=== PATIENT | female | born 1955 | race Caucasian/White ===

== ENCOUNTER → 2016-10-25 | Outpatient (CLI) | payer OTHER ==
--- NOTE | 2016-10-26 09:52 | MAM ---
EXAM DESCRIPTION: MAMMO BREAST SCREENING BILATERAL CAD, images were reviewed with CAD technology, R2 computer-aided detection. CLINICAL HISTORY: [facility]. COMPARISON: 2012. FINDINGS: Routine views are obtained. Scattered glandular pattern has slight nodularity with stable distribution. No dominant mass, architectural distortion or clustered microcalcification.. IMPRESSION: Benign exam. BIRAD CATEGORY: 2 BENIGN RECOMMENDATIONS: FOLLOW-UP: Routine screening mammogram in one year. According to the [employer], yearly mammograms are recommended starting at age 40 and continuing as long as a woman is in good health. Any breast change noted on a breast self-exam should be reported promptly to the patient's healthcare provider. Breast MRI is recommended for women with an approximately 20-25% or greater lifetime risk of breast cancer, including women with a strong family history of breast or ovarian cancer and women who have been treated for Hodgkin's disease. Electronically signed by: Ondina Dowling 10/26/2016 09:51
== END ==
LOC: MAMMO 15:51
PROVIDERS: ATTEND Family Medicine
DX: Z12.31 Encounter for screening mammogram for malignant neoplasm of breast (principal)
CPT/HCPCS: 77052; G0202

== ENCOUNTER → 2018-11-07 | Outpatient (CLI) | payer MEDICARE, OTHER | LOC: GMAL 11:36 | PROVIDERS: ATTEND Family Medicine | DX: D51.3 Other dietary vitamin B12 deficiency anemia (principal); R53.83 Other fatigue; E55.9 Vitamin D deficiency, unspecified ==

== ENCOUNTER 2019-04-15 16:38 | Inpatient (IN) | payer MEDICARE, OTHER ==
--- NOTE | 2019-04-15 16:39 | HP ---
SUPERVISING PHYSICIAN: Ric Minaya M.D. CHIEF COMPLAINT: Right lower extremity swelling. HISTORY OF PRESENT ILLNESS: This is a 63 year-old female who went to her primary care physician's office today for right lower extremity swelling. She does have an extensive history of that lower extremity in the fact that in 2018 she had a tibial plateau fracture and ended up developing compartment syndrome and needed a fasciotomy. Nonetheless, about a week ago last Sunday she went for a pedicure and they nicked her toe. Since that time she has had increased swelling, redness and discomfort to the lower extremity. She also complains of fever and chills. When she went to the doctor's office over there Dr. Mac contacted me for direct admission due to the fact she did have cellulitis in addition to the fact that since she has had an extensive history to that lower extremity already, he felt like she would need IV antibiotics. At time of examination the patient is alert and oriented without distress, however, does complain of discomfort to mainly the right second toe as well as discomfort to palpation of the right lower extremity. Homans' sign is negative so far. She does not complain of any other symptoms at this time. PAST MEDICAL HISTORY: 1. Hypertension. 2. Hyperlipidemia. 3. Fatty liver disease. 4. Atrial fibrillation. She is on Pradaxa. 5. SVT in the past and had ablations that were successful. 6. Right distal fibula fracture. 7. Ankle fusion back in 2005. 8. In 2018, she had a tibial plateau fracture that was complicated by compartment syndrome requiring a fasciotomy. PAST SURGICAL HISTORY: 1. sections times 2, one in 1982 and one in 1986. 2. Neurovascular membrane eye surgery in 1984. 3. Lap band surgery in 2006. 4. Right ankle surgery in 2005. 5. Open reduction and internal fixation of tibial plateau fracture and 4 fasciotomies back in 2018. 6. Colonoscopies as well. CURRENT MEDICATIONS: 1. Simvastatin 40 mg 1/2 tab p.o. every h.s. 2. Tarka 4/240 one tab by mouth daily. 3. Triamterene/HCTZ 37.5/25 one tab daily. 4. Venlafaxine 37.5 mg 1 tab p.o. b.i.d. 5. Pradaxa 150 mg 1 tab b.i.d. 6. Metoprolol 50 mg 1 tab daily. 7. Co Enzyme Q10 daily. 8. Vitamin B12 1,000 mcg 1 tab daily. 9. Vitamin D3 1,000 iu 1 tab p.o. b.i.d. ALLERGIES: PAXIL, PENICILLIN, WELLBUTRIN. FAMILY HISTORY: Father who of lung cancer. Mother who of heart disease but did have breast cancer and hypertension. A sister who is living and has osteoporosis. SOCIAL HISTORY: She drinks wine on occasion. No smoking. No illicit drugs. REVIEW OF SYSTEMS: CONSTITUTIONAL: Positive for fever and chills. No recent weight loss or weight gain. HEENT: No headaches, vision changes, ear pain, nasal congestion or throat pain. CARDIOVASCULAR: No chest pain, palpitations, peripheral edema. RESPIRATORY: No cough, hemoptysis or pleuritic chest pain. GASTROINTESTINAL: No nausea, vomiting, diarrhea, constipation or abdominal pain. GENITOURINARY: No dysuria, frequency or flank pain. MUSCULOSKELETAL: No joint pain, joint swelling or muscle cramps. INTEGUMENT: She does have the lower extremity cellulitis and swelling of her right lower extremity. ENDOCRINE: No polydipsia, polyuria or polyphagia. No heat or cold intolerance. NEUROLOGIC: No seizures, paresthesias or syncope. PHYSICAL EXAMINATION: VITAL SIGNS: Blood pressure 121/74, heart rate 80, respiratory rate 18, temperature 101.1, oxygen saturation 97%. GENERAL: Ms. Lowery is a 63 year-old female who is in no active distress at this time. CHEST: Lungs are clear to auscultation bilaterally. CARDIOVASCULAR: Regular rate and rhythm. Normal S1 and S2. ABDOMEN: Soft. Positive bowel sounds. GENITOURINARY: Exam is deferred. EXTREMITIES: Lower extremities with the left lower extremity without any abnormalities. Right lower extremity does have some edema on the lateral side. She does have erythema and warmth to touch. Second toe of the right foot has a small abrasion where she did get nicked by the filler spreader. She has scarring on the lower extremity from the previous fasciotomies. NEUROLOGIC: The patient is alert and oriented. ASSESSMENT: 1. Right lower extremity cellulitis. 2. History of fasciotomies due to compartment syndrome on the right lower extremity. 3. Hypertension. 4. Hyperlipidemia. 5. History of atrial fibrillation for which she was recently placed on Pradaxa. PLAN: At this time will admit the patient. Do a CBC, CMP, CRP, ESR as well as blood cultures. I will initiate on Clindamycin for antibiotic therapy. Once her medications are verified in the computer, I will place her back on her Pradaxa for DVT prophylaxis. I have ordered a PPI for GI ulcer prophylaxis. I have ordered a Doppler sonogram of the right lower extremity as well to rule out a deep venous thrombosis. #[id number] [facility]TDD
[2019-04-15] MEDS ORDERED: SODIUM CHLORIDE 0.9% (FLUSH) 10 ML SYG IV PRN (17:02)
[2019-04-15] MEDS ORDERED: IV SET AND CAP CHANGE INJ INJ SCH (17:30)
[2019-04-15] MEDS ORDERED: HYDROcodone 5MG/APAP 325MG 1 EA TAB ONE (18:22)
[2019-04-15] MEDS: HYDROcodone 5MG/APAP 325MG 1 EA TAB PO PRN (18:25)
[2019-04-15] MEDS ORDERED: CLINDAMYCIN IV 600MG 50 ML IVPB ONE (18:43)
[2019-04-15] MEDS: CLINDAMYCIN IV 600MG 600 MG in PREMIX BAG 1 BAG IVPB SCH (18:45)
[2019-04-15] MEDS ORDERED: DABIGATRAN ETEXILATE 75 MG CAP PO ONE (21:24)
[2019-04-15] MEDS ORDERED: SIMVASTATIN 20 MG TAB ONE (21:25)
[2019-04-15] MEDS: PRADAXA 150 MG PO SCH (21:27)
[2019-04-15] MEDS: NON-FORMULARY MEDICATION 1 EA MIS (Simvastatin [Simvastatin] 40 MG) PO SCH (21:27)
[2019-04-15] MEDS ORDERED: SIMVASTATIN 20 MG TAB PO ONE (21:53)
[2019-04-15] MEDS ORDERED: VANCOMYCIN PER PHARMACY INJ SCH (22:30)
[2019-04-16] MEDS ORDERED: CLINDAMYCIN IV 600MG 50 ML IVPB ONE ×6 (00:26→19:16)
[2019-04-16] MEDS ORDERED: HYDROcodone 5MG/APAP 325MG 1 EA TAB ONE ×2 (00:26→06:44)
[2019-04-16] MEDS: HYDROcodone 5MG/APAP 325MG 1 EA TAB PO PRN ×2 (00:28→06:46)
[2019-04-16] MEDS: CLINDAMYCIN IV 600MG 600 MG in PREMIX BAG 1 BAG IVPB SCH ×4 (00:28→17:54)
[2019-04-16] MEDS: OMEPRAZOLE CAP 20 MG CAP PO SCH (06:16)
[2019-04-16] MEDS ORDERED: SODIUM CHL 0.9% 250ML (AVIVA) 250 ML IVPB ONE ×2 (08:58→19:14)
[2019-04-16] MEDS ORDERED: VANCOMYCIN HCL INJ 500 MG VIAL ONE ×2 (08:58→19:14)
[2019-04-16] MEDS ORDERED: DABIGATRAN ETEXILATE 75 MG CAP PO ONE (08:58)
[2019-04-16] MEDS ORDERED: VANCOMYCIN HCL INJ 1,000 MG VIAL IVPB ONE ×2 (08:59→19:15)
[2019-04-16] MEDS ORDERED: HYDROCHLOROTHIAZIDE PO SCH (09:00)
[2019-04-16] MEDS ORDERED: TARKA PO SCH (09:00)
[2019-04-16] MEDS ORDERED: TRIAMTERENE PO SCH (09:00)
[2019-04-16] MEDS: VANCOMYCIN HCL INJ 1,000 MG, VANCOMYCIN HCL INJ 500 MG in SODIUM CHL 0.9% 250ML (AVIVA)... IVPB SCH ×2 (09:10→20:55)
[2019-04-16] MEDS: PRADAXA 150 MG PO SCH (09:10)
[2019-04-16] MEDS: METOPROLOL SUCCINATE XL 50 MG TAB PO SCH (09:11)
[2019-04-16] MEDS: BIFIDOBACTERIUM INFANTIS 4 MG CAP PO SCH ×2 (09:49→20:48)
--- NOTE | 2019-04-16 11:43 | US ---
EXAM DESCRIPTION: Venous,Lower Extremity RT: ULTRASOUND. CLINICAL HISTORY: cellulitis with swelling, rule out DVT COMPARISON: None Available. TECHNIQUE: Perez-scale and doppler sonographic evaluation of the deep venous system of the right lower extremity. FINDINGS: Doppler evaluation shows normal color flow and normal phasicity and augmentation of the right common femoral vein, femoral vein, popliteal vein, greater saphenous vein, peroneal, and posterior tibial vein. The right lower extremity deep veins were completely compressible; normal occlusion with transducer pressure. Perez-scale survey showed no echogenic thrombus within these veins. IMPRESSION: 1. Duplex ultrasound evaluation of the right lower extremity deep venous system showing no evidence of thrombosis. Electronically signed by: Zachary Browne MD 04/16/2019 11:41 AM CDT
[2019-04-16] MEDS: HYDROcodone 10MG/APAP 325MG 1 EA TAB PO PRN ×2 (12:33→19:25)
--- NOTE | 2019-04-16 14:24 | PN ---
DATE: 04/16/19 SUPERVISING PHYSICIAN: Ric Minaya MD SUBJECTIVE: The patient is sitting up in her bed. She has no complaints of nausea or vomiting or shortness of breath. She still has some pain in that right leg that is somewhat improved. She did ask if she could have some wound care to that second toe on her right foot that was injured during her pedicure. We also verified her pain medications and they are correct in the EMR. Otherwise, she has no complaints. OBJECTIVE: VITAL SIGNS: Temperature 98.2, heart rate 62, blood pressure 130/67, respiratory rate 18, oxygen saturation 98% on room air. RESPIRATORY: Essentially clear to auscultation bilaterally. CARDIAC: Regular rate and rhythm. GI: Abdomen soft, non-tender, nondistended. Bowel sounds are positive. EXTREMITIES: There is redness to that right lower calf area that is slightly warm, especially around the knee. There is an area of excoriation on the medial aspect of the second toe on her right foot. There is no drainage or fluctuance. It is approximately 1 cm in length. Bilateral pedal pulses are palpable at +2. NEUROLOGICAL: She is awake, alert, and oriented x3. LABORATORY: WBC 8.1 with hemoglobin of 12.6 and hematocrit of 36.9. Sodium 131, potassium 4.4, chloride 96, carbon dioxide 25. Her preliminary blood cultures are negative to date. Lower extremity ultrasound shows: Duplex ultrasound evaluation of right lower extremity showing no evidence of thrombosis. All other labs and films have been reviewed via the EMR. ASSESSMENT: 1. Right lower extremity cellulitis. 2. History of fasciotomies due to compartment syndrome on the right lower extremity. 3. Hypertension. 4. Hyperlipidemia. 5. History of atrial fibrillation for which she was recently placed on Pradaxa. PLAN: We will continue present supportive care including her clindamycin and vancomycin. I have ordered lab for in the morning and will monitor her clinical response. At some point, we may have to call Dr. Pittman in [place] for recommendations on her length of treatment and at some point she may need to see her doctor in [place] that manages her compartment syndrome to see if she needs to followup with any infectious disease. I have also ordered a right knee x-ray. We will continue to monitor closely and follow as needed. [id number] [facility]
[2019-04-16] MEDS: SIMVASTATIN 20 MG TAB PO SCH (20:48)
[2019-04-16] MEDS: DABIGATRAN ETEXILATE 75 MG CAP PO SCH (20:48)
[2019-04-16] MEDS ORDERED: SIMVASTATIN 20 MG TAB PO ONE (21:49)
[2019-04-17] MEDS: CLINDAMYCIN IV 600MG 600 MG in PREMIX BAG 1 BAG IVPB SCH ×4 (00:02→17:47)
[2019-04-17] MEDS: HYDROcodone 10MG/APAP 325MG 1 EA TAB PO PRN (05:46)
[2019-04-17] MEDS: OMEPRAZOLE CAP 20 MG CAP PO SCH (06:01)
[2019-04-17] MEDS ORDERED: SODIUM CHL 0.9% 250ML (AVIVA) 250 ML IVPB ONE ×2 (08:03→19:52)
[2019-04-17] MEDS ORDERED: VANCOMYCIN HCL INJ 500 MG VIAL ONE ×2 (08:03→19:51)
[2019-04-17] MEDS ORDERED: VANCOMYCIN HCL INJ 1,000 MG VIAL IVPB ONE ×2 (08:04→19:53)
[2019-04-17] MEDS: METOPROLOL SUCCINATE XL 50 MG TAB PO SCH (08:58)
[2019-04-17] MEDS: DABIGATRAN ETEXILATE 75 MG CAP PO SCH ×2 (08:58→20:51)
[2019-04-17] MEDS: HCTZ 25 MG/TRIAMTERENE 37.5 MG 1 EA CAP PO SCH (08:58)
[2019-04-17] MEDS: BIFIDOBACTERIUM INFANTIS 4 MG CAP PO SCH ×2 (08:58→20:51)
[2019-04-17] MEDS: VANCOMYCIN HCL INJ 1,000 MG, VANCOMYCIN HCL INJ 500 MG in SODIUM CHL 0.9% 250ML (AVIVA)... IVPB SCH ×2 (08:59→20:51)
[2019-04-17] MEDS: TARKA PO SCH (08:59)
--- NOTE | 2019-04-17 10:20 | RAD ---
PROVIDED CLINICAL HISTORY/REASON FOR EXAM: cellulitis;hx r lrg compartment syndrome Findings: Number of images: Three Location: Right knee Compartment syndrome cannot be evaluated radiographically. There is diffuse right lower extremity subcutaneous reticulation more pronounced laterally. Lateral plate and screws associated with the proximal tibia. No hardware complication. No acute fracture. No dislocation. Moderate right knee osteoarthritis. Moderate joint effusion. IMPRESSION: Diffuse subcutaneous reticulation about the right lower extremity, likely reflecting provided history of cellulitis. Moderate right knee joint effusion and osteoarthritis. Electronically signed by: Florin Upton MD 04/17/2019 10:18 AM CDT
--- NOTE | 2019-04-17 10:23 | RAD ---
PROVIDED CLINICAL HISTORY/REASON FOR EXAM: cellulitis;hx r lrg compartment syndrome Findings: Number of images: Three Location: Right tibia and fibula Compartment syndrome cannot be evaluated radiographically. Diffuse subcutaneous changes reticulation about the right lower extremity more pronounced laterally. No acute osseous abnormality. Redemonstrated lateral plate and screw fixation at the proximal tibia. No hardware complication. There are five screws associated with the right ankle. No hardware complication. The ankle is poorly profiled. IMPRESSION: Diffuse subcutaneous reticulation about the right lower extremity, likely reflecting the provided history of cellulitis. Electronically signed by: Florin Upton MD 04/17/2019 10:20 AM CDT
[2019-04-17] MEDS ORDERED: CLINDAMYCIN IV 600MG 50 ML IVPB ONE ×3 (12:14→19:51)
--- NOTE | 2019-04-17 14:34 | PN ---
SUPERVISING PHYSICIAN: Ric Minaya MD DATE: 04/17/19 SUBJECTIVE: The patient is sitting up in her bed. She is quite concerned if she should see infectious diseases during this hospital stay and that she needs to have a higher level of care. I informed her that her care would not be different at a different hospital, that her antibiotic therapy would have to be continued and that the main differences would be how long her antibiotic treatment was. I expressed that I had spoken to Radiology and he recommended an x-ray on her right lower leg and then followup with sonogram. We discussed the results of all of her tests and that I had spoken to Dr. Mac as well as ordered the recommended testing. I also expressed that I would speak to her daughters to answer their concerns for their mother's stay. OBJECTIVE: VITAL SIGNS: Temperature 98.2. Heart rate 64. Blood pressure 137/70. Respiratory rate 18. O2 saturation 98% on room air. RESPIRATORY: Essentially clear to auscultation bilaterally. CARDIAC: Regular rate and rhythm. GASTROINTESTINAL: Abdomen soft, nontender, nondistended. Bowel sounds are positive. EXTREMITIES: Her right lower leg has very minimal erythema and the edema is significantly less than yesterday. She does have some tenderness to that lateral portion of her knee just distal and lateral to the kneecap. It is slightly more edematous there. It most likely is related to the effusion present on that knee. It is slightly warm to the touch. It is also slightly tender to the touch, but very much located to that area of swelling on the knee. NEUROLOGICAL: She is awake, alert, and oriented x3. LABORATORY: WBCs 6.3 with a hemoglobin of 11.6 and hematocrit 33.8. Electrolytes are within normal limits. Creatinine is slightly low at 0.46. Her preliminary blood cultures show no growth at 24 hours. Her right knee x-ray shows diffuse subcutaneous reticulation about the right lower extremity likely reflecting provided history of cellulitis, moderate right knee effusion and osteoarthritis. Her right tibia/fibula x-ray shows diffuse subcutaneous reticulation about the right lower extremity likely reflecting the provided history of cellulitis. Her soft tissue sonogram of the right lower extremity is still pending. All other labs and films have been reviewed via the EMR. ASSESSMENT: 1. Right lower extremity cellulitis. 2. History of fasciotomies due to compartment syndrome on the right lower extremity. 3. Hypertension. 4. Hyperlipidemia. 5. History of atrial fibrillation for which she was recently placed on Pradaxa. PLAN: We will continue present supportive. I spoke to Dr. Browne and he felt the sonogram and x-rays would be sufficient at this time and that she will need to do an outpatient MRI on Sunday or Sunday. It is to be noted it is to be done with and without contrast and that she does have some hardware in her leg for specialized testing. At this point, we will continue with clindamycin and vancomycin. I will speak with Dr. Pittman, infectious diseases physician in [place], and get her recommendations on the length of treatment. Until she can give me recommendations, I will plan on continuing her IV vancomycin as an outpatient here at the hospital. She can take oral clindamycin unless Dr. Pittman has different recommendations. She can followup with Dr. Mac after her MRI and she would most likely benefit from seeing her orthopedic physician in [place] that has taken care of her compartment syndrome in the past. She can either see Dr. Pittman or followup with their recommended ID doctor for the length of treatment, which may be somewhat longer due to her previous complications and compartment syndrome, but I will leave that up to Dr. Mac and the specialist. She also has a knee effusion which may benefit from drainage if it continues to hurt her. I have ordered lab including ESR and CRP in the morning. We will continue to monitor the patient closely and follow as needed. #[id number] [facility]TDD
--- NOTE | 2019-04-17 15:15 | US ---
EXAM DESCRIPTION: Soft Tissue,Extremity: ULTRASOUND. CLINICAL HISTORY: 63 years Female right knee pain; cellulitis. Clinical improvement. Prior ORIF of the knee. COMPARISON: None Available. TECHNIQUE: Transcutaneous scanning: Perez-scale and Doppler modes. FINDINGS: Diffuse edema in the subcutaneous adipose tissue and between the adipose tissue in the muscle layer and also within the muscles. More lateral than medial. On the lateral aspect of the right knee, is a 4.0 x 2.5 x 0.9 cm fluid collection which does not have a complex appearance. Wider than tall orientation, circumscribed, and posterior acoustic enhancement. Most likely effusion. IMPRESSION: Cellulitis versus edema in the right lower leg, lateral more than medial. 4 cm effusion abutting the lateral right knee. Electronically signed by: Zachary Browne MD 04/17/2019 3:13 PM CDT
[2019-04-17] MEDS: NON-FORMULARY MEDICATION 1 EA MIS (Simvastatin [Simvastatin] 40 MG) PO SCH (20:05)
[2019-04-17] MEDS: SIMVASTATIN 20 MG TAB PO SCH (20:52)
[2019-04-18] MEDS: CLINDAMYCIN IV 600MG 600 MG in PREMIX BAG 1 BAG IVPB SCH ×3 (00:06→12:18)
[2019-04-18] MEDS ORDERED: CLINDAMYCIN IV 600MG 50 ML IVPB ONE ×2 (00:27→12:16)
[2019-04-18] MEDS: OMEPRAZOLE CAP 20 MG CAP PO SCH (06:01)
[2019-04-18] MEDS ORDERED: SODIUM CHL 0.9% 250ML (AVIVA) 250 ML IVPB ONE (07:27)
[2019-04-18] MEDS ORDERED: VANCOMYCIN HCL INJ 500 MG VIAL ONE (07:27)
[2019-04-18] MEDS ORDERED: VANCOMYCIN HCL INJ 1,000 MG VIAL IVPB ONE (07:28)
[2019-04-18] MEDS: BIFIDOBACTERIUM INFANTIS 4 MG CAP PO SCH (08:39)
[2019-04-18] MEDS: HCTZ 25 MG/TRIAMTERENE 37.5 MG 1 EA CAP PO SCH (08:39)
[2019-04-18] MEDS: METOPROLOL SUCCINATE XL 50 MG TAB PO SCH (08:39)
[2019-04-18] MEDS: DABIGATRAN ETEXILATE 75 MG CAP PO SCH (08:39)
[2019-04-18] MEDS: VANCOMYCIN HCL INJ 1,000 MG, VANCOMYCIN HCL INJ 500 MG in SODIUM CHL 0.9% 250ML (AVIVA)... IVPB SCH (08:40)
[2019-04-18] MEDS: TARKA PO SCH (08:41)
[2019-04-18 11:03] VITALS: O2SAT 96
[2019-04-18 15:15] VITALS: BP 135/72; TEMP 98.3
--- NOTE | 2019-04-19 10:27 | DS ---
SUPERVISING PHYSICIAN; Ric Minaya MD DISCHARGE DIAGNOSIS: 1. Right lower extremity cellulitis. 2. History of fasciotomies due to compartment syndrome on the right lower extremity. 3. Hypertension. 4. Hyperlipidemia. 5. History of atrial fibrillation for which she was recently placed on Pradaxa. HISTORY OF PRESENT ILLNESS: This is a 63 year-old female patient who was seen by her primary care physician, Dr. Mac, for her right lower extremity swelling. She does have a history of problems with that right lower extremity due to a tibial plateau fracture and developed compartment syndrome. She needed a fasciotomy. She has actually had approximately 4 fasciotomies. Last Sunday she had gone for a pedicure and they nicked her great toe. Since that time, she has had increased swelling, redness and discomfort to the lower extremity. She also had fever and chills. She saw Dr. Mac and he asked that she be directly admitted due to the cellulitis of the right lower extremity, especially due to the history with compartment syndrome and felt that she would be best treated with IV antibiotics. She was admitted to the hospital. HOSPITAL COURSE: The patient was placed on vancomycin per pharmacy protocol as well as IV clindamycin. Her initial lab work was unremarkable with the exception of her ESR was 57 and her CRP was 8.7. Her vital signs were stable other than her admitting temperature of 101.1. She otherwise remained afebrile. Her heart rate was stable at 60, blood pressure was 128/71, respiratory rate 18 and oxygen saturation was 96%. She progressively improved clinically but she complained of some right knee pain, especially on the lateral portion of her right knee. She was quite worried about her compartment syndrome so we did a soft tissue ultrasound, a tibia/fibula x-ray and a knee x-ray. Lower extremity ultrasound had been done earlier that showed no evidence of any DVT in that leg. At one point, I spoke with Dr. Pittman, Infectious Disease in [place], and she felt that as long as the patient was improved and until followup with her primary care physician, she should remain on the vancomycin and the clindamycin can be discontinued and she would need an MRI of that right lower extremity. I also spoke with radiologist, Mr. Zachary Browne, and he agreed that she needed an MRI of her right lower extremity. I have discussed her plan of care with both her primary care physician, Dr. Mac, as well as the patient and she agreed to this treatment and today she will be discharged home in stable condition. LABORATORY: WBC remained between 5,500 and 8,100 with stable hemoglobin of 11.4 and hematocrit of 33.7. Her initial sodium was 131 and is now 135. Potassium remained stable at 3.9 with a chloride of 102. Carbon dioxide 25, BUN 13, creatinine 0.7. Magnesium 2.4, C-reactive protein was 8.7 on admission and is 14.7 today. ESR 57 on admission and 108 today. Her preliminary blood cultures show no growth after 48 hours. RADIOLOGY: Lower extremity ultrasound shows no evidence of any DVT in the right lower leg. Her right knee x-ray shows diffuse subcutaneous reticulation about the right lower extremity, likely reflecting provided history of cellulitis, moderate right knee joint effusion and osteoarthritis. Her right tibia/fibula x-ray shows diffuse subcutaneous reticulation about the right lower extremity likely reflecting the provided history of cellulitis. There is no hardware complication. Soft tissue ultrasound of the right lower extremity shows cellulitis versus edema in the right lower leg, lateral more than medial, 4 cm effusion abutting the lateral right knee. DISCHARGE PLAN: The patient will be discharged home in stable condition. Her clindamycin has been discontinued and she will continue with daily vancomycin per pharmacy protocol here at the hospital until she sees both Dr. Mac, her primary care physician, as well as her orthopedist who she has an appointment with next . She has an appointment with Dr. Mac on 04/22/19 at 3:[address] Pittman said she would be willing to see her as an outpatient for followup. I do not have an appointment at this time. Her vancomycin can be discontinued as soon as her orthopedist recommends. She is to increase her activity as tolerated and resume her previous diet as well as her previous home medications, vancomycin as per pharmacy protocol at [facility]. She is to followup with Dr. Mac or return to the hospital for any problems or complications. DISCHARGE MEDICATIONS: 1. Triamterene Hydrochlorothiazide. 2. Tarka. 3. Simvastatin. 4. Metoprolol Succinate. 5. Pradaxa. 6. Align. 7. Vancomycin IV per [facility] pharmacy protocol. [facility][id number] [facility]
== END 2019-04-18 15:15 | disposition home or self-care (01) | DRG 603 ==
LOC: MS 16:38
PROVIDERS: ADMIT Family Medicine; ATTEND Nurse Practitioner
DX: L03.115 Cellulitis of right lower limb (principal); I10 Essential (primary) hypertension; E78.5 Hyperlipidemia, unspecified; I48.91 Unspecified atrial fibrillation; Z79.02 Long term (current) use of antithrombotics/antiplatelets; K76.0 Fatty (change of) liver, not elsewhere classified; Z98.890 Other specified postprocedural states; Z98.84 Bariatric surgery status; Z87.81 Personal history of (healed) traumatic fracture; Z88.0 Allergy status to penicillin; Z88.8 Allergy status to other drugs, medicaments and biological substances; Z79.899 Other long term (current) drug therapy

== ENCOUNTER → 2019-04-21 | Outpatient (CLI) | payer MEDICARE, OTHER ==
--- NOTE | 2019-04-21 12:13 | MRI ---
Study: MRI of the Right Tibia/Fibula. Indication: CELLULITIS Technique: Multiplanar, multi sequence MRI of the right tibial/fibula was obtained without intravenous contrast. Comparison: Radiographs April 17, 2019. Findings: Lateral plate-screw construct proximal tibial plateau/metaphysis. Tibiotalar and tibiofibular fusion constructs present as well. This is not optimally evaluated due to susceptibility artifact. Moderate subcutaneous edema about the right lower leg and most pronounced anteriorly. Intramuscular edema noted throughout the anterior muscle compartment. There is grade 2 fatty infiltration throughout the right lower leg musculature.In addition, mild edema noted within the inferior most aspects of the medial and lateral gastrocnemius. These areas of intramuscular edema are nonspecific. Myositis, muscle strain, and compartment syndrome are considerations. No drainable fluid collection. No acute fracture identified. Within the central aspects of the mid tibial shaft tuner extending or rate craniocaudal length of 11.5 cm there is patchy osteonecrosis. Impression: Post surgical changes of ORIF of the proximal tibia as well as of tibiotalar and tibiofibular fusion constructs. These are not optimally evaluated by this exam. Intramuscular edema throughout the anterior muscle compartment as well as within the inferior aspects and medial and lateral gastrocnemius musculature with differential considerations as above. Patchy osteonecrosis of the mid tibial shaft. No acute fracture. Cellulitis throughout the right lower leg. No drainable fluid collection. Electronically signed by: Yemi Greenberg MD 04/21/2019 12:11 PM CDT
== END ==
LOC: MRI 08:17
PROVIDERS: ATTEND Nurse Practitioner Acute Care
DX: L03.115 Cellulitis of right lower limb (principal); M87.861 Other osteonecrosis, right tibia; T79.A21A Traumatic compartment syndrome of right lower extremity, initial encounter; Z98.890 Other specified postprocedural states

== ENCOUNTER → 2019-04-22 | Outpatient (CLI) | payer MEDICARE, OTHER | LOC: GMAL 16:39 | PROVIDERS: ATTEND Family Medicine | DX: M25.50 Pain in unspecified joint (principal) ==

== ENCOUNTER → 2019-04-29 | Outpatient (CLI) | payer MEDICARE, OTHER | LOC: GMAL 20:01 | PROVIDERS: ATTEND Family Medicine | DX: L03.90 Cellulitis, unspecified (principal) ==

== ENCOUNTER → 2019-09-03 | Outpatient (CLI) | payer MEDICARE, OTHER | LOC: GMAL 10:29 | PROVIDERS: ATTEND Family Medicine | DX: R53.83 Other fatigue (principal); I10 Essential (primary) hypertension; E78.49 Other hyperlipidemia ==

== ENCOUNTER → 2019-09-04 | Outpatient (CLI) | payer MEDICARE, OTHER ==
--- NOTE | 2019-09-04 10:44 | CT ---
EXAM DESCRIPTION: Chest w/Contrast : Computed Tomography. CLINICAL HISTORY: 64 years Female DYSPNEA. Recent cardiac ablation surgery. COMPARISON: None. TECHNIQUE: Spiral-axial scans at 5 x 5 mm intervals through the lungs and thorax with IV contrast. 2.5 x 5 mm lung algorithm axial reconstructions. Coronal and sagittal 2.0 Mm reconstructions. No adverse reactions. Total Exam DLP: 941.5 mGy-cm. This exam was performed according to our departmental dose-optimization program which includes automated exposure control, adjustment of the mA and/or kV according to patient size and/or use of iterative reconstruction technique; to reduce radiation dose to as low as reasonably achievable (ALARA). Nodule measurements under 10 mm are given as mean value of 3 axes diameters. FINDINGS: Lungs and large airways: Elevation of right hemidiaphragm and right upper quadrant abdominal contents including the liver into the right hemidiaphragm. Decreased volume and atelectasis in the right lower lobe, with pleural parenchymal scarring. Minimal atelectasis in the right middle lobe. 3.8 mm subpleural solid nodule in the posterior left upper lobe versus focal pleural thickening, on axial image 01/20. No abnormal and no focal masses. No focal infiltrates. Right upper lobe volume decreased compared to the left upper lobe. Pleural spaces: Nodule versus focal pleural thickening abutting the left upper lobe. Mediastinum and [place]: Mediastinal and hilar calcifications most likely degenerated lymph nodes with no enlarged nodes or dominant soft tissue masses. Great vessels and Heart: Atherosclerotic calcifications in the aortic arch. No cardiac enlargement. Soft tissues of neck base, axillae, and chest wall: Unremarkable. Upper abdomen: No free air or free fluid. Stomach is small with numerous surgical clips and sutures adjacent to the stomach. Including gallbladder adrenal glands liver spleen and pancreas unremarkable. Osseous structures: Healing fracture lateral left seventh rib with fracture line partially visible surrounded by callus. Spondylosis mid and lower thoracic spine with mild levoscoliosis inferior spine. Degenerative changes in the glenohumeral joints, more right than left. IMPRESSION: 1. Elevation of right hemidiaphragm with volume loss and atelectasis and scarring in the right lower lobe and right middle lobe. Volume in the right upper lobe is decreased compared to the left upper lobe. Correlate for neurologic or muscular abnormality of the left hemidiaphragm. Consider fluoroscopic evaluation of right hemidiaphragmatic movement. 2. 3.8 mm solid pulmonary nodule within the left upper lobe (versus focal pleural thickening). If patient is low risk for malignancy, no routine follow-up imaging is recommended; if patient is high risk for malignancy, a non-contrast Chest CT at 12 months is optional. If performed and the nodule is stable at 12 months, no further follow-up is recommended. These guidelines do not apply to immunocompromised patients and patients with cancer. Follow up in patients with significant comorbidities as clinically warranted. For lung cancer screening, adhere to Lung-RADS guidelines. Reference: Radiology. 2017; 284(1):228-43. 3. Patient may be overdue for follow-up 12 month bilateral mammographic screening (most recent screening at [facility] May 2018). Electronically signed by: Zachary Browne MD 09/04/2019 10:42 AM [facility]
== END ==
LOC: CT 09:20
PROVIDERS: ATTEND Family Medicine
DX: R06.02 Shortness of breath (principal)

== ENCOUNTER → 2019-09-05 | Outpatient (CLI) | payer MEDICARE, OTHER ==
--- NOTE | 2019-09-05 15:40 | RAD ---
EXAM DESCRIPTION: Fluoroscopy Up to 1Hr: RF. CLINICAL HISTORY: 64 years Female, EVALUATION OF DIAPHRAGMATIC MOVEMENT DYSPNEA. SUBACUTE ONSET OF RIGHT DIAPHRAGMATIC ELEVATION. COMPARISON: CT scan of the chest with contrast August 2019. TECHNIQUE: Fluoroscopy was performed by Dr. Browne. Fluoroscopy of each hemidiaphragm during normal respiration, deep inspiration, and rapid sniff (test). 63 fluoroscopy cine loop images. DAP 9.2 chapa-centimeter squared. Dose 41.23 mGy. Fluoroscopy time 1.1 minute. FINDINGS: 1. Normal breathing: normal inferior excursion of the left hemidiaphragm with inspiration and elevation with expiration. Right hemidiaphragm jerky minimal excursion superiorly and inferiorly. 2. Deep inspiration: Normal inferior excursion of the left hemidiaphragm with inspiration. Spasmodic minimal elevation of the right hemidiaphragm with inspiration. 3. Sniff test: Normal rapid inferior excursion of the left hemidiaphragm. Abnormal elevation of the right hemidiaphragm. IMPRESSION: Fluoroscopic evaluation of bilateral hemidiaphragm movement shows decreased right hemidiaphragm movement during normal breathing and paradoxical elevation of the right hemidiaphragm with deep inspiration and rapid inspiration (sniff test). 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 CRITICAL COMMUNICATION: The critical value was discussed directly by phone by Dr. Browne, with Dr. Randall Mac at approximately 1215 hours, on 09/05/2019. Electronically signed by: Zachary Browne MD 09/05/2019 3:39 PM [employer]
== END ==
LOC: RAD 11:18
PROVIDERS: ATTEND Family Medicine
DX: R06.02 Shortness of breath (principal)

== ENCOUNTER → 2020-11-26 | Outpatient (CLI) | payer MEDICARE, OTHER | LOC: GMAL 13:03 | PROVIDERS: ATTEND Family Medicine | DX: D51.3 Other dietary vitamin B12 deficiency anemia (principal); E55.9 Vitamin D deficiency, unspecified; R53.83 Other fatigue; I10 Essential (primary) hypertension; E78.49 Other hyperlipidemia ==